=== PATIENT | male | born 1990 | race African-American/Black ===

== ENCOUNTER 2017-03-28 15:56 | Emergency (ER) | payer OTHER, MEDICAID | END 2017-03-28 17:50 | disposition left against medical advice (07) | LOC: UCCORT 15:56 | DX: J34.89 Other specified disorders of nose and nasal sinuses (principal); Z53.21 Procedure and treatment not carried out due to patient leaving prior to being seen by health care provider ==

== ENCOUNTER 2017-04-01 08:08 | Emergency (ER) | payer MEDICAID, OTHER ==
[2017-04-01 08:28] VITALS: BP 143/88
[2017-04-01] MEDS ORDERED: Ketorolac INJ* 60 MG/2 ML VIAL IM ONE (08:41)
--- NOTE | 2017-04-01 08:42 | UC ---
Throat Pain/Nasal Horace HPI - HPI Summary HPI Summary: patient came in to with complaint of chest congestion, frontal sinus pressure for 1 week, sore throat, nasal congestion. upon exam he began to complain of left sided chest pain, difficutly taking a deep breath and heart palpitations. the pain did not change with movement and was not palpable - History of Current Complaint Chief Complaint: UCRespiratory Stated Complaint: SINUS Time Seen by Provider: 04/01/17 08:22 Hx Obtained From: Patient Onset/Duration: Sudden Onset, Lasting Weeks - 1 Severity: Moderate Pain Intensity: 10 Associated Signs & Symptoms: Positive: Dysphagia, Sinus Discomfort, Nasal Discharge - Allergies/Home Medications Allergies/Adverse Reactions: Allergies Allergy/AdvReac Type Severity Reaction Status Date / Time No Known Allergies Allergy Verified 04/01/17 08:20 Home Medications: Home Medications Bnoofmq-Ftsowywdzxhju-Syqtdtaf [Excedrin Extra Strength] 2 tab PO ONCE PRN 04/01 [History Confirmed 04/01/17] guaiFENesin ER TAB [Mucinex*] 600 mg PO BID PRN 04/01/17 [History Confirmed ] PMH/Surg Hx/FS Hx/Imm Hx Previously Healthy: Yes - Surgical History Surgical History: None - Family History Known Family History: Positive: None - neg for HTN - Social History Alcohol Use: Occasionally Substance Use Type: None Smoking Status (MU): Never Smoked Tobacco - Immunization History Most Recent Influenza Vaccination: none Review of Systems Constitutional: Fatigue Skin: Negative Eyes: Negative ENT: Sore Throat, Nasal Discharge, Sinus Congestion, Sinus Pain/Tenderness - frontal Respiratory: Cough Cardiovascular: Palpitations, Chest Pain - left side Gastrointestinal: Negative Genitourinary: Negative Motor: Negative Neurovascular: Negative Musculoskeletal: Myalgia Neurological: Headache Psychological: Negative Is Patient Immunocompromised?: No All Other Systems Reviewed And Are Negative: Yes Physical Exam Triage Information Reviewed: Yes Appearance: Well-Nourished, Ill-Appearing, Pain Distress Vital Signs: Initial Vital Signs Temp 98.4 F 04/01/17 08:25 Pulse 85 04/01/17 08:25 Resp 18 04/01/17 08:25 BP 143/88 04/01/17 08:25 Pulse Ox 99 04/01/17 08:25 Vital Signs Reviewed: Yes Eye Exam: Normal ENT: Positive: Pharyngeal erythema, TM bulging, Tonsillar swelling, Sinus tenderness - frontal Dental Exam: Normal Neck exam: Normal Neck: Positive: Supple, Nontender, No Lymphadenopathy Respiratory Exam: Normal Respiratory: Positive: Chest non-tender, Lungs clear, Normal breath sounds Cardiovascular: Positive: RRR, No Murmur, Pulses Normal Abdominal Exam: Normal Abdomen Description: Positive: Nontender, No Organomegaly, Soft Bowel Sounds: Positive: Present Musculoskeletal Exam: Normal Neurological Exam: Normal Psychological Exam: Normal Skin Exam: Normal Diagnostics - EKG Cardiac Rate: NL Cardiac Rhythm: Sinus: Normal Ectopy: None ST Segment: Normal Throat Pain/Nasal Course/Dx - Course Course Of Treatment: hx obtained, exam performed ,meds reviewed, ekg obtained due to patients complaints, reviewed with Dr Gaona, treated for sinusitis and headache. - Differential Dx/Diagnosis Differential Diagnosis/HQI/PQRI: Otitis Media, Pharyngitis, Sinusitis, URI Provider Diagnoses: sinusitis. Headache. palpitations Discharge - Discharge Plan Condition: Stable Disposition: HOME Patient Education Materials: Sinusitis (ED) Referrals: No Primary Care Phys,NOPCP [Primary Care Provider] - Additional Instructions: 1. take the medication as prescribed 2. Warm Compresses to the head, 3. Increase fluid intake and get plenty of rest 4. If the chest pain gets worse, you develop and numbness or tingling into the jaw or arms, nausea, increase in pain, please follow up in ER immediately.
== END 2017-04-01 09:10 | disposition home or self-care (01) ==
LOC: UCCORT 08:08
DX: J32.9 Chronic sinusitis, unspecified (principal); R51 Headache; R00.2 Palpitations
CPT/HCPCS: 93005; 96372; 99212; G0463; J1885

== ENCOUNTER 2017-09-12 19:27 | Emergency (ER) | payer OTHER ==
[2017-09-12 19:41] VITALS: BP 127/76
--- NOTE | 2017-09-12 20:11 | UC ---
Back Pain HPI - HPI Summary HPI Summary: Pt c/o gradual onset of bilateral flank pain, and gerald with inhalation. Denies, fever chills, cough, SOB. Pt began taking methotrexate last week for hx of psoriasis and has only taken one tablet last week and spoke with colon therapist provider two days ago and was told to discontinue medication. Pt denies hx of kidney stones, hematuria or oliguria. - History of Current Complaint Chief Complaint: UCBackPain Stated Complaint: BACK PAIN, TROUBLE BREATHING Time Seen by Provider: 09/12/17 19:46 Hx Obtained From: Patient Onset/Duration: Gradual Onset, Lasting Days, Still Present Timing: Constant Severity Initially: Mild Severity Currently: Moderate Pain Intensity: 10 Character: Sharp - with positonal changes, Dull, Aching, Burning Aggravating Factor(s): Movement Alleviating Factor(s): Rest, Position Associated Signs And Symptoms: Positive: Flank Pain - Risk Factors TAD Risk Factors: Negative Cauda Equina Risk Factors: Negative Epidural Abscess Risk Factors: Negative - Allergies/Home Medications Allergies/Adverse Reactions: Allergies Allergy/AdvReac Type Severity Reaction Status Date / Time No Known Allergies Allergy Verified 09/12/17 19:34 Home Medications: Home Medications Folic Acid TAB* [Folvite TAB*] 1 tab DAILY 09/12/17 [History Confirmed 09/12/17] Methotrexate TAB* 1 - 2 tab WEEKLY 09/12/17 [History Confirmed 09/12/17] PMH/Surg Hx/FS Hx/Imm Hx Previously Healthy: Yes - psoriais - Surgical History Surgical History: None - Family History Known Family History: Positive: None - neg for HTN, Cardiac Disease - Social History Occupation: Employed Full-time Lives: With Family Alcohol Use: Occasionally Substance Use Type: None Smoking Status (MU): Never Smoked Tobacco Have You Smoked in the Last Year: No - Immunization History Most Recent Influenza Vaccination: none Review of Systems Constitutional: Negative Skin: Rash Eyes: Negative ENT: Negative Respiratory: Other - dyspnea Cardiovascular: Negative Gastrointestinal: Negative Genitourinary: Negative Motor: Decreased ROM - chest/ribs Neurovascular: Negative Musculoskeletal: Arthralgia, Myalgia Neurological: Negative Psychological: Negative Is Patient Immunocompromised?: No All Other Systems Reviewed And Are Negative: Yes Physical Exam Triage Information Reviewed: Yes Appearance: Well-Appearing Vital Signs: Initial Vital Signs Temp 97.7 F 09/12/17 19:34 Pulse 86 09/12/17 19:34 Resp 16 09/12/17 19:34 BP 127/76 09/12/17 19:34 Pulse Ox 100 09/12/17 19:34 Vital Signs Reviewed: Yes Eye Exam: Normal ENT Exam: Normal Dental Exam: Normal Neck exam: Normal Respiratory Exam: Normal Respiratory: Positive: Normal breath sounds, No respiratory distress, No accessory muscle use Cardiovascular Exam: Normal Abdomen Description: Positive: CVA Tenderness (R), CVA Tenderness (L) Musculoskeletal Exam: Normal Musculoskeletal: Positive: Other: Neurological Exam: Normal Psychological Exam: Normal Skin Exam: Normal Back Pain Course/Dx - Course Course Of Treatment: I discussed the results of pts urinalysis and recommended that pt follow up immediately with provider who prescribed methotrexate. - Differential Dx/Diagnosis Differential Diagnosis/HQI/PQRI: Strain, Sprain Provider Diagnoses: costochondritis. flank pain Discharge - Sign-Out/Discharge Documenting (check all that apply): Patient Departure - Discharge Plan Condition: Stable Disposition: HOME Patient Education Materials: Flank Pain (ED), Costochondritis (ED) Referrals: No Primary Care Phys,NOPCP [Medical Doctor] - If Needed Tarun Schaefer PA [Physician Document Control Supervisor] - As Soon As Possible Additional Instructions: Please make sure you are drinking at minimum 32 ounces of water. Also, if your symptoms worsen, please seek care as soon as possible. - Billing Disposition and Condition Condition: STABLE Disposition: Home
== END 2017-09-12 20:22 | disposition home or self-care (01) ==
LOC: UCCORT 19:27
DX: M94.0 Chondrocostal junction syndrome [Tietze] (principal); M54.5 Low back pain; R06.00 Dyspnea, unspecified; L40.9 Psoriasis, unspecified
CPT/HCPCS: 81003; 99211; G0463